=== PATIENT | female | born 1980 | race Hispanic/Latino ===

== ENCOUNTER 2017-07-20 22:12 | Emergency (ER) | payer OTHER ==
[2017-07-20] MEDS ORDERED: Lactated Ringer's 1,000 ML IV STA (22:34)
--- NOTE | 2017-07-20 22:39 | ED PDOC ---
HPI: Female Pain Time Seen by Provider: 07/20/17 22:25 Chief Complaint (Nursing): Female Genitourinary Chief Complaint (Provider): vaginal bleeding History Per: Patient History/Exam Limitations: no limitations Onset/Duration Of Symptoms: Hrs (3) Current Symptoms Are (Timing): Still Present Quality Of Discomfort: Cramping, "Pain" Associated Symptoms: denies: Fever, Chills, Nausea, Vomiting Additional Complaint(s): used about 6 tampons in last 2 hours mild lightheadedness stopped taking control pills in april, trying to get . Had 2 mildly heavy periods since then. LMP Jun 21 Denies bleeding elsewhere. PMD [facility] Past Medical History Reviewed: Historical Data, Nursing Documentation, Vital Signs - Medical History PMH: No Chronic Diseases - Family History Family History: States: No Known Family Hx - Social History Alcohol: Social - Allergies Allergies/Adverse Reactions: Allergies Allergy/AdvReac Type Severity Reaction Status Date / Time No Known Allergies Allergy Verified 07/20/17 22:14 Review of Systems ROS Statement: Except As Marked, All Systems Reviewed And Found Negative (and as per HPI) Cardiovascular: Positive for: Light Headedness Genitourinary Female: Positive for: Vaginal Bleeding, Pelvic Pain Physical Exam - Reviewed Nursing Documentation Reviewed: Yes Vital Signs Reviewed: Yes - Physical Exam Appears: Positive for: Non-toxic, No Acute Distress Head Exam: Positive for: ATRAUMATIC, NORMOCEPHALIC Skin: Positive for: Warm, Dry Eye Exam: Positive for: EOMI, PERRL Neck: Positive for: Painless ROM, Supple Cardiovascular/Chest: Positive for: Regular Rate, Rhythm. Negative for: Murmur Respiratory: Positive for: Normal Breath Sounds. Negative for: Wheezing Gastrointestinal/Abdominal: Positive for: Soft, Tenderness (suprapubic tenderness). Negative for: Mass, Distended, Guarding, Rebound Back: Positive for: Normal Inspection. Negative for: Muscle Spasm Extremity: Positive for: Normal ROM. Negative for: Deformity Lymphatic: Negative for: Adenopathy Neurologic/Psych: Positive for: Alert. Negative for: Motor/Sensory Deficits - Laboratory Results Result Diagrams: 07/20/17 22:55 07/20/17 22:55 - Progress ED Course And Treament: EXAM: US Pelvis, Transvaginal CLINICAL HISTORY: 36 years old, female; Signs and symptoms; Menstruation abnormalities; Excessive menstruation; With irregular cycle; Additional info: Heavy vaginal bleeding TECHNIQUE: Real-time transvaginal pelvic ultrasound (complete) with image documentation. Transvaginal imaging was used for better evaluation of the endometrium and adnexa. COMPARISON: No relevant prior studies available. FINDINGS: Uterus/cervix: Uterus measures 7.1 x 3.2 x 3.9 CM and is anterior vertex. Endometrium measures 6 mm in thickness. Posterior fundal fibroid measuring 0.9 x 0.7 x 0.8 CM. Right ovary: Right ovary measures 2.6 x 2.4 x 1.9 CM. Normal blood flow. Left ovary: Left ovary measures 2.2 x 1.7 x 2.5 CM. Normal blood flow. Free fluid: No free fluid. Bladder: Empty bladder which cannot be evaluated with this probe. IMPRESSION: Myomatous uterus. Thank you for allowing us to participate in the care of your patient. Dictated and Authenticated by: Kevin Ponce MD 07/20/2017 11:47 PM Eastern Time ([place] & [place]) Disposition - Clinical Impression Clinical Impression: Fibroid - Disposition Disposition: Routine/Home Disposition Time: 23:50 Condition: GOOD Additional Instructions: PLEASE FOLLOW UP WITH YOUR BLIND AIDE NEXT WEEK FOR FURTHER EVALUATION AND MANAGEMENT. Instructions: Uterine Fibroids, Heavy Periods
[2017-07-20 23:01] VITALS: BP 125/61; PULSE 71; RESP 16
[2017-07-20 23:04] LABS: BASO # 0.1 K/uL (0.0-0.2); BASO % 0.8 % (0.0-2.0); EOS # 0.2 K/uL (0.0-0.7); EOS % 3.3 % (0.0-4.0); HEMOGLOBIN 13.8 g/dL (12.0-16.0); LYMPH # 3.1 K/uL (1.0-4.3); LYMPH % 45.2 % (20.0-40.0); MEAN CELL VOLUME 92.7 fl (81.0-99.0); MEAN CORPUSCULAR HEMOGLOBIN 31.2 pg (27.0-31.0); MEAN CORPUSCULAR HGB CONC 33.6 g/dL (33.0-37.0); MEAN PLATELET VOLUME 8.3 fl (7.2-11.7); MONO # 0.6 K/uL (0.0-0.8); MONO % 9.4 % (0.0-10.0); NEUT # 2.8 K/uL (1.8-7.0); NEUT % 41.3 % (50.0-75.0); NRBC % 0.1 % (0.0-0.0); RBC 4.43 Mil/uL (3.80-5.20); RED CELL DISTRIBUTION WIDTH 12.5 % (11.5-14.5); WHITE BLOOD COUNT 6.9 K/uL (4.8-10.8)
[2017-07-20 23:12] LABS: ALB/GLOB RATIO 1.6 (1.0-2.1); ALBUMIN 4.2 g/dL (3.5-5.0); ALT/SGPT 38 U/L (9-52); AST/SGOT 24 U/L (14-36); BLOOD UREA NITROGEN 13 mg/dl (7-17); CALCIUM 9.3 mg/dL (8.4-10.2); GFR AFRICAN-AMERICAN > 60; GFR NON-AFRICAN AMERICAN > 60
[2017-07-20 23:15] VITALS: TEMP 98
[2017-07-20 23:16] LABS: INR 0.9 (0.9-1.2); PARTIAL THROMBOPLASTIN TIME 32.1 Seconds (25.6-37.1); PROTHROMBIN TIME 10.1 Seconds (9.8-13.1)
--- NOTE | 2017-07-20 23:48 | US ---
EXAM: US Pelvis, Transvaginal CLINICAL HISTORY: 36 years old, female; Signs and symptoms; Menstruation abnormalities; Excessive menstruation; With irregular cycle; Additional info: Heavy vaginal bleeding TECHNIQUE: Real-time transvaginal pelvic ultrasound (complete) with image documentation. Transvaginal imaging was used for better evaluation of the endometrium and adnexa. COMPARISON: No relevant prior studies available. FINDINGS: Uterus/cervix: Uterus measures 7.1 x 3.2 x 3.9 CM and is anterior vertex. Endometrium measures 6 mm in thickness. Posterior fundal fibroid measuring 0.9 x 0.7 x 0.8 CM. Right ovary: Right ovary measures 2.6 x 2.4 x 1.9 CM. Normal blood flow. Left ovary: Left ovary measures 2.2 x 1.7 x 2.5 CM. Normal blood flow. Free fluid: No free fluid. Bladder: Empty bladder which cannot be evaluated with this probe. IMPRESSION: Myomatous uterus.
== END 2017-07-20 23:59 | disposition home or self-care (01) ==
LOC: H.ER 22:12
DX: D25.9 Leiomyoma of uterus, unspecified (principal); N92.0 Excessive and frequent menstruation with regular cycle
CPT/HCPCS: 76830; 80053; 81025; 85025; 85610; 85730; 86850; 86900; 99284; J7120